=== PATIENT | male | born 1990 | race Two or more races ===

== ENCOUNTER 2018-05-25 10:29 | Emergency (ER) | payer SELFPAY ==
[~2018-05-25] VITALS: Ht 165.1 cm; Wt 86.2 kg
[2018-05-25 10:41] VITALS: BP 157/91
[2018-05-25] MEDS ORDERED: ACYC400T PO (11:35)
[2018-05-25] MEDS ORDERED: PRED50TA PO (11:35)
--- NOTE | 2018-05-25 11:36 | PHYS DOC ---
Past Medical History Past Medical History: No Pertinent History Past Surgical History: No Surgical History Alcohol Use: None Drug Use: None Adult General Chief Complaint Chief Complaint: OTHER COMPLAINTS HPI HPI Patient is a 27 year old male who presents to the ER with complaints of right sided facial numbness and inability to close his right eye or move the right side of his mouth. Pt denies any headache, weakness, incoordination, difficulty speaking, or extremity numbness. He sates that the symptoms started last night. Pt denies any fever, cough, shortness of breath, sore throat, rash, nausea, vomiting, abdominal pain, or chest pain. He denies any pain at this time. There are no alleviating or aggravating factors. Review of Systems Review of Systems Constitutional: Denies fever or chills [] Eyes: Denies change in visual acuity; See HPI HENT: Denies nasal congestion or sore throat; See HPI] Respiratory: Denies cough or shortness of breath [] Cardiovascular: No additional information not addressed in HPI [] GI: Denies abdominal pain, nausea, or vomiting Musculoskeletal: Denies back pain or joint pain [] Integument: Denies rash or skin lesions [] Neurologic: Denies headache, see HPI Physical Exam Physical Exam Constitutional: Well developed, well nourished, no acute distress, non-toxic appearance. [] HENT: Normocephalic, atraumatic, bilateral external ears normal, oropharynx moist, no oral exudates, nose normal; flattened nasolabial fold, drooping of R corner of mouth, flattened forehead. [] Eyes: PERRLA, no discharge; decreased closure of R upper eyelid , decreased tear production R eye Neck: Normal range of motion, no stridor. [] Cardiovascular:Heart rate regular rhythm, no murmur [] Lungs & Thorax: Bilateral breath sounds clear to auscultation [] Skin: Warm, dry, no erythema, no rash. [] Extremities: No cyanosis, no clubbing, ROM intact, no edema. [] Neurologic: Alert and oriented X 3, normal motor and sensory function of extremities x4 Psychologic: Affect normal, judgement normal, mood normal. [] Current Patient Data Vital Signs Vital Signs Date Time Temp Pulse Resp B/P (MAP) Pulse Ox O2 Delivery O2 Flow Rate FiO2 05/25/18 10:41 98.7 110 18 157/91 (113) 95 Room Air 98.7 EKG EKG [] Radiology/Procedures Radiology/Procedures [] Course & Med Decision Making Course & Med Decision Making Pertinent Labs and Imaging studies reviewed. (See chart for details) Dx: Triplett's Palsy Prescriptions for prednisone and acylovir. Pt instructed to use artificial tears every 15-30 minutes during the day. Avoid grinding, sanding, or sawing activities where debris may enter eye, wear protective lenses or an eye shield to protect eye. At night use lacrilube or other night time eye lubricant and tape eye shut. Follow up with your primary care doctor next week, return to the ER if your symptoms worsen. Patient verbalized an understanding of home care, medications, follow-up, and return to ED instructions and was in agreement with the plan of care. [] Dragon Disclaimer Dragon Disclaimer This electronic medical record was generated, in whole or in part, using a voice recognition dictation system. Departure Departure Impression: Primary Impression: Triplett's palsy Disposition: HOME, SELF-CARE Condition: STABLE Referrals: NO PCP (PCP) Patient Instructions: Acyclovir tablets or capsules, Triplett's Palsy, Prednisone tablets Additional Instructions: Fill the prescriptions and use as directed. Use artificial tears every 15-30 minutes during the day to wet your right eye. Avoid grinding, sanding, or sawing activities where debris may enter your eye, wear protective lenses or an eye shield to protect your eye. At night use lacrilube or other night time eye lubricant and tape your eye shut. Follow up with your primary care doctor next week, return to the ER if your symptoms worsen. Scripts Acyclovir (ACYCLOVIR) 400 Mg Tablet 400 MG PO 5XDAY for 7 Days, #35 TAB 0 Refills Prov: RENITA STAFFORD RESEARCH PROFESSOR [employer]IOSTATISTICS 05/25/18 Prednisone (PREDNISONE) 50 Mg Tablet 1 TAB PO DAILY, #5 TAB Prov: RENITA STAFFORD RESEARCH PROFESSOR [employer] BIOSTATISTICS 05/25/18 RENITA STAFFORD APRN May 25, 2018 11:36
== END 2018-05-25 11:57 | disposition home or self-care (01) ==
LOC: ER 10:29
DX: G51.0 Bell's palsy (principal)
CPT/HCPCS: 99283